=== PATIENT | male | born 1965 | race Hispanic/Latino ===

== ENCOUNTER 2019-02-23 15:43 | Observation (INO) | payer OTHER ==
[~2019-02-23] VITALS: Ht 175.3 cm; Wt 117.9 kg
[2019-02-23] MEDS ORDERED: SODIUM CHLORIDE 0.9% 1000ML 1,000 ML IV ONE (16:02)
[2019-02-23 16:13] LABS: BASOPHILS % (AUTO) 0.3 % (0.0-5.0); EOSINOPHILS % (AUTO) 1.7 % (0.0-8.0); HEMATOCRIT 43.7 % (36-48); LYMPHOCYTES % (AUTO) 15.7 % (21.0-51.0); MEAN CORPUSCULAR HEMOGLOBIN 30.8 pg (27.0-33.0); MEAN CORPUSCULAR HGB CONC 33.5 g/dL (32.0-36.0); MONOCYTES % (AUTO) 4.8 % (3.0-13.0); NEUTROPHILS % (AUTO) 77.5 % (40.0-77.0); PLATELET COUNT (AUTO) 169 K/uL (130-400); RED BLOOD CELL COUNT(AUTO) 4.75 MIL/uL (4.00-5.50); RED CELL DISTRIBUTION WIDTH 14.6 % (11.0-15.5); WHITE BLOOD COUNT (AUTO) 11.9 K/uL (4.8-10.8)
[2019-02-23 16:23] LABS: CREATININE 1.9 mg/dL (0.5-1.5); POTASSIUM 4.2 mmol/L (3.5-5.1)
[2019-02-23 16:27] LABS: ALBUMIN 3.8 g/dL (3.5-5.0); BILIRUBIN,DIRECT 0.1 mg/dL (0.0-0.3); BILIRUBIN,TOTAL 0.5 mg/dL (0.2-1.0); TOTAL PROTEIN, SERUM 7.8 g/dL (6.0-8.3)
[2019-02-23] MEDS ORDERED: SODIUM BICARB 50MEQ 50ML VIAL ONE (16:54)
[2019-02-23 16:59] LABS: B-TYPE NATRIURETIC PEPTIDE 15 pg/mL (0-100)
[2019-02-23 17:16] LABS: ACETAMINOPHEN < 1 mcg/mL (10-30); SALICYLATE < 2.8 mg/dL (2.8-20.0)
[2019-02-23] MEDS ORDERED: METHYLPREDNISOLONE SOD SUCC 40MG/ML 1ML ONE (18:59)
[2019-02-23] MEDS ORDERED: DIPHENHYDRAMINE HCL 25 MG CAPSULE PO PRN (19:00)
[2019-02-23] MEDS: SODIUM CHLORIDE 0.9% 1000ML 1,000 ML IV SCH (19:00)
[2019-02-23] MEDS: METHYLPREDNISOLONE SOD SUCC 40MG/ML 1ML IVP SCH (20:00)
[2019-02-23 22:10] VITALS: BP 141/83
[2019-02-23] MEDS ORDERED: ATOR10TA69 PO (22:25)
[2019-02-23] MEDS ORDERED: FOLI1TAB85 PO (22:25)
[2019-02-23] MEDS ORDERED: AMIT25TA9 PO (22:25)
[2019-02-23] MEDS ORDERED: GLIP5TAB11 PO (22:25)
[2019-02-23] MEDS ORDERED: ERGO500014 PO (22:25)
--- NOTE | 2019-02-23 22:25 | NUR ---
admit note admit to room 401 via stretcher from er. patient awake, alert, ox3, no sob, no c/o pain , no respiratory distress noted, right hand 18 gauge with ivf of ns at 100 cc/hr started, patients at bedside, teach patient and family plan of care and expected outcome
[2019-02-24 00:32] LABS: APPEARANCE,URINE Cloudy (CLEAR); BILIRUBIN,URINE Negative (NEGATIVE); COLOR,URINE Yellow (YELLOW); GLUCOSE, URINE (UA) 500 mg/dL (NEGATIVE); KETONES,URINE Trace mg/dL (NEGATIVE); LEUKOCYTE ESTERASE ,URINE Negative (NEGATIVE); NITRATE,URINE Negative (NEGATIVE); OCCULT BLOOD,URINE Moderate (NEGATIVE); PROTEIN,URINE POS 1+ mg/dL (NEGATIVE)
[2019-02-24 00:48] LABS: AMPHET/METH SCREEN,URINE NEGATIVE (NEGATIVE); BARBITURATE SCREEN, URINE NEGATIVE (NEGATIVE); BENZODIAZEPINES SCREEN,URINE NEGATIVE (NEGATIVE); CANNABINOID SCREEN,URINE NEGATIVE (NEGATIVE); COCAINE SCREEN,URINE NEGATIVE (NEGATIVE); OPIATE SCREEN,URINE NEGATIVE (NEGATIVE); PHENCYCLIDINE SCREEN,URINE NEGATIVE (NEGATIVE)
[2019-02-24 00:56] LABS: BACTERIA,URINE Few /HPF (None Seen); WBC,URINE 0-1 /HPF (0-1)
[2019-02-24 04:00] VITALS: BP 140/77
[2019-02-24] MEDS: SODIUM CHLORIDE 0.9% 1000ML 1,000 ML IV SCH ×3 (04:23→20:57)
[2019-02-24] MEDS: METHYLPREDNISOLONE SOD SUCC 40MG/ML 1ML IVP SCH ×2 (04:23→11:55)
[2019-02-24 04:29] LABS: BASOPHILS % (AUTO) 0.1 % (0.0-5.0); HEMATOCRIT 40.6 % (42-54); MEAN CORPUSCULAR HGB CONC 33.3 g/dL (32.0-36.0); MEAN CORPUSCULAR VOLUME 93.1 fL (79-99); MONOCYTES % (AUTO) 1.7 % (3.0-13.0); NEUTROPHILS % (AUTO) 85.2 % (40.0-77.0); PLATELET COUNT (AUTO) 137 K/uL (130-400); RED BLOOD CELL COUNT(AUTO) 4.35 MIL/uL (4.50-6.20); RED CELL DISTRIBUTION WIDTH 14.5 % (11.0-15.5); WHITE BLOOD COUNT (AUTO) 9.3 K/uL (4.8-10.8)
[2019-02-24 04:44] LABS: CREATININE 1.7 mg/dL (0.5-1.5); POTASSIUM 4.7 mmol/L (3.5-5.1)
[2019-02-24] MEDS: INSULIN HUMULIN R 100 UNIT/ML 3ML SQ SCH ×4 (05:59→21:13)
[2019-02-24 07:43] VITALS: BP 132/76
[2019-02-24 10:57] VITALS: BP 120/72
[2019-02-24 16:02] VITALS: BP 121/65
[2019-02-24] MEDS: DIPHENHYDRAMINE HCL 25 MG CAPSULE PO SCH (16:42)
[2019-02-24] MEDS: PREDNISONE 10 MG TABLET PO SCH (16:43)
--- NOTE | 2019-02-24 17:30 | NUR ---
cm note met with patient and states resides at home with spouse he is independent with adls and self care. uses a cane for ambulation. no other dme. dc plan is back to same home setting at [place]. Addendum: 02/24/19 at 1731 by MARGARET GALVAN CM Amended: Links added.
--- NOTE | 2019-02-24 19:00 | NUR ---
PATIENT AWAKE AND ALERT SITTING UP IN BED. VOICES ALL NEEDS. NO COMPLAINTS OF PAIN VOICED AT THIS TIME. VITALS STABLE. AFEBRILE. RESP EVEN AND UNLABORED. NO SOB NOTED. O2 ON AT 2LPM VIA NASAL CANNULA. UP AD BROOKE. TOLERATING IVF WELL. NS INFUSING AT 100ML/HR. NO SIGNS OF DISTRESS NOTED. FAMILY AT SIDE. CALL LIGHT WITHIN REACH. WILL CONTINUE TO BE OBSERVED. Addendum: 02/24/19 at 2342 by HARJIT GILL RN RN Amended: Links added.
[2019-02-24 19:28] VITALS: BP 154/88
[2019-02-24] MEDS: FAMOTIDINE 20MG TAB 20 MG TAB PO SCH (20:52)
[2019-02-24] MEDS ORDERED: ATORVASTATIN CALCIUM 10 MG TABLET PO SCH (21:00)
[2019-02-24 23:50] VITALS: BP 151/73
[2019-02-25] MEDS: DIPHENHYDRAMINE HCL 25 MG CAPSULE PO SCH ×2 (01:56→09:27)
[2019-02-25 04:00] VITALS: BP 139/79
[2019-02-25] MEDS: PREDNISONE 10 MG TABLET PO SCH (04:33)
[2019-02-25] MEDS: INSULIN HUMULIN R 100 UNIT/ML 3ML SQ SCH (06:31)
[2019-02-25 07:45] VITALS: BP 127/70
[2019-02-25] MEDS ORDERED: FOLIC ACID/VITAMIN B COMP W-C 1 MG CAP/TAB PO SCH (09:00)
[2019-02-25] MEDS ORDERED: GLIPIZIDE XL 5MG TAB PO SCH (09:00)
[2019-02-25] MEDS: FAMOTIDINE 20MG TAB 20 MG TAB PO SCH (09:27)
--- NOTE | 2019-02-25 11:15 | NUR ---
DISCHARGE DISCHARGE TEACHING DONE WITH PATIENT USING TEACHBACK METHOD, VERBALIZED UNDERSTANDING. NO NOTED SOB OR DISTRESS. PT AWARE OF NEED TO ATTEND PCP APPOINTMENT. NEW MEDICATION ADMINISTRATION TEACHING DONE WITH PATIENT USING TEACHBACK METHOD, VERBALIZED UNDERSTANDING. IV REMOVED, CATH TIP INTACT. TELEPACK REMOVED AND RETURNED. PENDING TO BE WHEELED DOWNSTAIRS AND TRANSFERRED OUT VIA PRIVATE VEHICLE.
[2019-03-03] MEDS ORDERED: ERGOCALCIFEROL (VITAMIN D2) 50,000 UNIT CAPSULE PO SCH (09:00)
== END 2019-02-25 12:24 | disposition home or self-care (01) ==
LOC: EDH 15:43 → EDHIP 18:30 → EDSEX 18:30 → 4AH 21:04
PROVIDERS: ADMIT Internal Medicine Critical Care Medicine; ATTEND Internal Medicine Critical Care Medicine
DX: T88.6XXA Anaphylactic reaction due to adverse effect of correct drug or medicament properly administered, initial encounter (principal); T43.015A Adverse effect of tricyclic antidepressants, initial encounter; T78.3XXA Angioneurotic edema, initial encounter; N28.9 Disorder of kidney and ureter, unspecified; I10 Essential (primary) hypertension; E78.5 Hyperlipidemia, unspecified; E66.01 Morbid (severe) obesity due to excess calories; E11.40 Type 2 diabetes mellitus with diabetic neuropathy, unspecified; E11.21 Type 2 diabetes mellitus with diabetic nephropathy; G47.33 Obstructive sleep apnea (adult) (pediatric); Z68.38 Body mass index [BMI] 38.0-38.9, adult; Z88.5 Allergy status to narcotic agent; Z88.8 Allergy status to other drugs, medicaments and biological substances; Y92.9 Unspecified place or not applicable
CPT/HCPCS: 36415 ×2; 80048 ×2; 80076; 80305; 81001; 82948 ×5; 83880; 84484 ×2; 85025 ×2; 93005 ×3; 96372 ×2; 96374; 96376; 99284; G0378 ×42; G0480; G0481; J1815 ×5; J2920 ×3; J3490; J7030 ×2; J7512 ×2; Q0163 ×4

== ENCOUNTER 2019-04-12 13:01 | Inpatient (IN) | payer OTHER | END 2019-04-20 18:50 | disposition home or self-care (01) | LOC: EDH 13:01 → 3AH 04-14 04:35 → EDHIP 13:02 → 3DH 17:21 | PROC: BT141ZZ Fluoroscopy of Kidneys, Ureters and Bladder using Low Osmolar Contrast (ICD-10-PCS; principal; 2019-04-13 09:50) | PROC: 0T788DZ Dilation of Bilateral Ureters with Intraluminal Device, Via Natural or Artificial Opening Endoscopic (ICD-10-PCS; 2019-04-13 09:50) | PROC: 0TC03ZZ Extirpation of Matter from Right Kidney, Percutaneous Approach (ICD-10-PCS; 2019-04-13 09:50) | DX: I82.C19 Acute embolism and thrombosis of unspecified internal jugular vein (principal); N13.2 Hydronephrosis with renal and ureteral calculous obstruction; C85.90 Non-Hodgkin lymphoma, unspecified, unspecified site; N18.4 Chronic kidney disease, stage 4 (severe); N17.9 Acute kidney failure, unspecified; N13.6 Pyonephrosis; N13.9 Obstructive and reflux uropathy, unspecified; E11.319 Type 2 diabetes mellitus with unspecified diabetic retinopathy without macular edema; E11.40 Type 2 diabetes mellitus with diabetic neuropathy, unspecified; E66.01 Morbid (severe) obesity due to excess calories; I12.9 Hypertensive chronic kidney disease with stage 1 through stage 4 chronic kidney disease, or unspecified chronic kidney disease ==

== ENCOUNTER 2019-05-16 09:25 | Day surgery (SDC) | payer MEDICARE, OTHER ==
[2019-05-13 12:30] VITALS: BP 116/70
[2019-05-13 12:53] LABS: BASOPHILS % (AUTO) 0.8 % (0.0-5.0); EOSINOPHILS % (AUTO) 6.3 % (0.0-8.0); HEMATOCRIT 32.2 % (42-54); LYMPHOCYTES % (AUTO) 17.6 % (21.0-51.0); MEAN CORPUSCULAR HEMOGLOBIN 32.1 pg (27.0-33.0); MEAN CORPUSCULAR VOLUME 94.5 fL (79-99); MONOCYTES % (AUTO) 6.8 % (3.0-13.0); NEUTROPHILS % (AUTO) 68.5 % (40.0-77.0); PLATELET COUNT (AUTO) 169 K/uL (130-400); RED BLOOD CELL COUNT(AUTO) 3.41 MIL/uL (4.50-6.20); RED CELL DISTRIBUTION WIDTH 16.4 % (11.0-15.5); WHITE BLOOD COUNT (AUTO) 7.2 K/uL (4.8-10.8)
[2019-05-13 13:10] LABS: CREATININE 1.7 mg/dL (0.5-1.5); POTASSIUM 3.8 mmol/L (3.5-5.1); URIC ACID 5.2 mg/dL (2.6-7.2)
[2019-05-13 13:19] LABS: APPEARANCE,URINE TURBID (CLEAR); BILIRUBIN,URINE SMALL (NEGATIVE); COLOR,URINE RED (YELLOW); GLUCOSE, URINE (UA) NEGATIVE (NEGATIVE); KETONES,URINE NEGATIVE (NEGATIVE); LEUKOCYTE ESTERASE ,URINE MODERATE (NEGATIVE); NITRATE,URINE NEGATIVE (NEGATIVE); OCCULT BLOOD,URINE LARGE (NEGATIVE); PROTEIN,URINE >=300 mg/dL (NEGATIVE); UROBILINOGEN,URINE 0.2 mg/dL (0.2-1.0)
[2019-05-13 13:37] LABS: BACTERIA,URINE Rare /HPF (None Seen); RBC,URINE TNTC /HPF (0-1); SQUAMOUS EPITHELIAL CELL,UR Rare /HPF (0-2)
--- NOTE | 2019-05-15 15:04 | NUR ---
labs labs faxed to Dr. Rios. office per there request. message left with Sary,
--- NOTE | 2019-05-15 15:58 | NUR ---
LABS RECEIVED CALL BACK FROM [facility] PER DR. MCCARTY NO FURTHER ORDERS GIVEN ON ABNORMAL LABS REPORTED AND FAXED. OK TO PROCEED WITH SX
[~2019-05-16] VITALS: Ht 175.3 cm; Wt 112.8 kg
[2019-05-16] VITALS (14 sets, daily range): BP systolic 137–190; BP diastolic 70–100
[~2019-05-16 09:25] MED LIST: AMOX-429 PO; APIX5TAB PO; ATOR10TA69 PO; CHOL200016 PO; ENOX120D5 SQ; ERGO500014 PO; FOLI1TAB85 PO; INSU200I SQ; INSU3INS3 SQ
[2019-05-16] MEDS ORDERED: IOHEXOL-350 50ML VIAL IV ONE (09:51)
[2019-05-16] MEDS ORDERED: CEFTRIAXONE SODIUM 1 GM ONE (10:47)
[2019-05-16] MEDS ORDERED: SODIUM CHLORIDE 0.9% 1000ML 1,000 ML IV ONE (10:47)
[2019-05-16] MEDS: CEFTRIAXONE SODIUM 1 GM IVP ONE ×2 (11:00→11:50)
[2019-05-16] MEDS: GENTAMICIN 80 MG/NS 100 ML PB 100 ML IV PRN ×2 (11:45→11:47)
[2019-05-16] MEDS ORDERED: LIDOCAINE PF 2% 5ML ABBOJECT ONE (11:47)
[2019-05-16] MEDS ORDERED: PROPOFOL 10 MG/ML 20ML VIAL IV ONE (11:47)
[2019-05-16] MEDS ORDERED: FENTANYL CITRATE PF 50 MCG/1 ML 2ML VIAL ONE (11:48)
--- NOTE | 2019-05-16 15:50 | NUR ---
PT. LEFT VIA WHEELCHAIR IN PVT CAR WITH D/C INSTRUCTION GIVEN TO AND F/U APPT SCHEDULED. NO COMPLAINTS UPON D.C.
== END 2019-05-16 15:50 ==
LOC: DAH 09:25
PROVIDERS: ATTEND Urology
DX: N20.2 Calculus of kidney with calculus of ureter (principal); E78.5 Hyperlipidemia, unspecified; I10 Essential (primary) hypertension; G47.30 Sleep apnea, unspecified
CPT/HCPCS: 36415 ×2; 52356; 74018; 77002; 80048; 81001; 82360 ×2; 82948 ×2; 84550; 85025; 87088; 96365; A4215 ×2; A4221; A4222; A4223 ×2; A4358; A4600; A4649; A4663; A4930; C1758; C1769; C2617; J0696; J1580; J2001; J2704; J3010; J7030 ×2; Q9967

== ENCOUNTER → 2019-06-04 | Outpatient (CLI) | payer OTHER | END | disposition home or self-care (01) | LOC: RAH 14:39 | PROVIDERS: ATTEND Internal Medicine | DX: I82.A11 Acute embolism and thrombosis of right axillary vein (principal) | CPT/HCPCS: 93970 ==

== ENCOUNTER → 2020-09-23 | Outpatient (CLI) | payer OTHER ==
[~2020-09-23] MED LIST changes: +GADODIAMIDE 10 MMOL/20 ML VIAL IV ONE
== END | disposition home or self-care (01) ==
LOC: RAH 12:56
PROVIDERS: ATTEND Internal Medicine
DX: M47.816 Spondylosis without myelopathy or radiculopathy, lumbar region (principal); M48.061 Spinal stenosis, lumbar region without neurogenic claudication; R20.0 Anesthesia of skin
CPT/HCPCS: 72158; A9579

== ENCOUNTER 2022-07-08 19:08 | Observation (INO) | payer OTHER ==
[~2022-07-08] VITALS: Ht 170.2 cm; Wt 111.1 kg
[~2022-07-08 19:08] MED LIST changes: -GADODIAMIDE 10 MMOL/20 ML VIAL IV ONE
[2022-07-08 21:03] LABS: BASOPHILS % (AUTO) 0.7 % (0.0-5.0); EOSINOPHILS % (AUTO) 4.8 % (0.0-8.0); HEMATOCRIT 37.8 % (42-54); LYMPHOCYTES % (AUTO) 20.4 % (21.0-51.0); MEAN CORPUSCULAR HEMOGLOBIN 30.6 pg (27.0-33.0); MEAN CORPUSCULAR HGB CONC 32.8 g/dL (32.0-36.0); MEAN CORPUSCULAR VOLUME 93.3 fL (79-99); NEUTROPHILS % (AUTO) 62.7 % (40.0-77.0); PLATELET COUNT (AUTO) 179 K/uL (130-400); RED BLOOD CELL COUNT(AUTO) 4.05 MIL/uL (4.50-6.20); RED CELL DISTRIBUTION WIDTH 13.4 % (11.0-15.5); WHITE BLOOD COUNT (AUTO) 7.3 K/uL (4.8-10.8)
[2022-07-08 21:13] LABS: CREATININE 2.2 mg/dL (0.5-1.5); POTASSIUM 4.4 mmol/L (3.5-5.1)
[2022-07-08 21:18] LABS: ALBUMIN 3.1 g/dL (3.5-5.0)
[2022-07-09] VITALS (27 sets, daily range): BP systolic 107–145; BP diastolic 52–80
[2022-07-09 01:44] LABS: APPEARANCE,URINE CLEAR (CLEAR); BILIRUBIN,URINE NEGATIVE (NEGATIVE); COLOR,URINE YELLOW (YELLOW); GLUCOSE, URINE (UA) 30 mg/dL (NEGATIVE); KETONES,URINE NEGATIVE (NEGATIVE); LEUKOCYTE ESTERASE ,URINE NEGATIVE Leu/uL (NEGATIVE); NITRATE,URINE NEGATIVE (NEGATIVE); OCCULT BLOOD,URINE NEGATIVE (NEGATIVE); PROTEIN,URINE 10 mg/dL (NEGATIVE); UROBILINOGEN,URINE 0.2 mg/dL (0.2-1.0)
[2022-07-09 01:49] LABS: BACTERIA,URINE RARE /HPF (None Seen); MUCUS,URINE RARE LPF (None Seen); SQUAMOUS EPITHELIAL CELL,UR RARE /HPF (0-2)
[2022-07-09] MEDS ORDERED: MORPHINE 4 MG SYG IVP ONE (02:00)
[2022-07-09] MEDS ORDERED: ONDANSETRON 4MG INJ IVP ONE (02:00)
[2022-07-09] MEDS ORDERED: LACTULOSE 20 GM/30 ML UDCUP PO PRN (04:30)
[2022-07-09] MEDS ORDERED: ACETAMINOPHEN 325 MG TAB PO PRN (04:30)
[2022-07-09] MEDS ORDERED: ACETAMINOPHEN 650 MG SUPPOSITORY RC PRN (04:30)
[2022-07-09] MEDS ORDERED: HYDRALAZINE 20MG/ML VIAL IV PRN (04:30)
[2022-07-09] MEDS ORDERED: CLONIDINE HCL 0.1 MG TABLET PO PRN (04:30)
[2022-07-09] MEDS ORDERED: ONDANSETRON 4MG INJ IVP PRN (04:30)
[2022-07-09] MEDS ORDERED: LACTATED RINGERS 1000ML 1,000 ML IV SCH (04:30)
[2022-07-09] MEDS ORDERED: DOCUSATE SODIUM 100 MG CAP PO PRN (04:30)
[2022-07-09] MEDS: 0.9%NACL 1000ML 1,000 ML IV SCH ×2 (04:47→10:44)
[2022-07-09] MEDS ORDERED: DEXTROSE 50%-WATER 50 ML DISP.SYRIN IV PRN (05:00)
[2022-07-09] MEDS ORDERED: GLUCAGON 1MG KIT 1 MG ML IM PRN (05:00)
[2022-07-09 05:56] LABS: CHLORIDE,URINE RANDOM 122 mmol/L (110-250); POTASSIUM,URINE RANDOM 48 mmol/L (25-125); SODIUM,URINE RANDOM 93 mmol/l (40-220)
[2022-07-09] MEDS ORDERED: HYDROMORPHONE 0.5 MG SYG (0.5MG/0.5ML) IVP PRN (07:30)
[2022-07-09] MEDS: INSULIN HUMULIN R 100 UNIT/ML 3ML SQ SCH ×4 (07:30→21:24)
[2022-07-09 07:31] LABS: INR 0.97 (0.85-1.15); PROTHROMBIN TIME 10.6 SEC (9.6-11.6)
[2022-07-09] MEDS ORDERED: INSU100V3 IJ (08:04)
[2022-07-09] MEDS ORDERED: DULO30CA52 PO (08:04)
[2022-07-09] MEDS ORDERED: POTA15TA11 PO (08:04)
[2022-07-09] MEDS: CEFTRIAXONE 1G VIAL IVP SCH (10:43)
[2022-07-09] MEDS: TAMSULOSIN HCL 0.4 MG CAP.ER.24H PO SCH (10:43)
[2022-07-09] MEDS ORDERED: IOHEXOL-350 50ML VIAL IV ONE (12:07)
[2022-07-09] MEDS ORDERED: LIDOCAINE HCL MPF 1% 5ML VIAL ONE (12:08)
[2022-07-09] MEDS ORDERED: SUCCINYLCHOLINE 200MG/10ML SYR ONE (12:08)
[2022-07-09] MEDS ORDERED: MIDAZOLAM HCL 1 MG/ML 2ML VIAL ONE (12:08)
[2022-07-09] MEDS ORDERED: PROPOFOL 10 MG/ML 20ML VIAL IV ONE (12:09)
[2022-07-09] MEDS ORDERED: FENTANYL CITRATE PF 50 MCG/1 ML 2ML VIAL ONE (12:09)
[2022-07-09] MEDS ORDERED: ONDANSETRON 4MG INJ ONE (12:09)
[2022-07-09] MEDS ORDERED: GLYCOPYRROLATE 1 MG/5 ML SYRINGE ONE (12:09)
[2022-07-09] MEDS ORDERED: ROCURONIUM 10MG/1ML SYR 10 MG/ML ML ONE (12:09)
[2022-07-09] MEDS ORDERED: NEOSTIGMINE 5MG/5ML SYR IV ONE (12:09)
[2022-07-09] MEDS ORDERED: EPHEDRINE SULFATE 50 MG/ML AMPULE ONE (12:46)
[2022-07-09] MEDS ORDERED: TRAMADOL HCL 50 MG TABLET PO PRN (14:30)
[2022-07-10] VITALS: BP 129/69
[2022-07-10] MEDS: 0.9%NACL 1000ML 1,000 ML IV SCH (03:53)
[2022-07-10 04:00] VITALS: BP 123/69
[2022-07-10 05:14] LABS: BASOPHILS % (AUTO) 0.7 % (0.0-5.0); EOSINOPHILS % (AUTO) 3.3 % (0.0-8.0); HEMATOCRIT 36.6 % (42-54); LYMPHOCYTES % (AUTO) 20.7 % (21.0-51.0); MEAN CORPUSCULAR HEMOGLOBIN 30.6 pg (27.0-33.0); MEAN CORPUSCULAR HGB CONC 32.2 g/dL (32.0-36.0); MEAN CORPUSCULAR VOLUME 94.8 fL (79-99); MONOCYTES % (AUTO) 7.3 % (3.0-13.0); NEUTROPHILS % (AUTO) 67.7 % (40.0-77.0); PLATELET COUNT (AUTO) 166 K/uL (130-400); RED BLOOD CELL COUNT(AUTO) 3.86 MIL/uL (4.50-6.20); RED CELL DISTRIBUTION WIDTH 13.6 % (11.0-15.5); WHITE BLOOD COUNT (AUTO) 7.6 K/uL (4.8-10.8)
[2022-07-10 05:26] LABS: CREATININE 1.8 mg/dL (0.5-1.5); POTASSIUM 3.9 mmol/L (3.5-5.1); URIC ACID 5.7 mg/dL (2.6-7.2)
[2022-07-10 05:28] LABS: HEMOGLOBIN A1C 7.4 % (4.0-6.0)
[2022-07-10] MEDS: INSULIN HUMULIN R 100 UNIT/ML 3ML SQ SCH ×2 (06:30→11:39)
[2022-07-10 07:45] VITALS: BP 109/63
[2022-07-10] MEDS: TAMSULOSIN HCL 0.4 MG CAP.ER.24H PO SCH (08:03)
[2022-07-10] MEDS: CEFTRIAXONE 1G VIAL IVP SCH (08:19)
[2022-07-10] MEDS ORDERED: Vitamin B Complex/Vit C/Folic Acid PO SCH (09:00)
[2022-07-10 11:33] VITALS: BP 132/71
[2022-07-10] MEDS ORDERED: LEVO-70 PO (14:12)
== END 2022-07-10 16:00 | disposition home or self-care (01) ==
LOC: EDH 19:08 → EDHIP 07-09 04:25 → 4BH 07-09 09:35
PROVIDERS: ADMIT Internal Medicine Critical Care Medicine; ATTEND Internal Medicine Critical Care Medicine
DX: N13.2 Hydronephrosis with renal and ureteral calculous obstruction (principal); Z20.822 Contact with and (suspected) exposure to COVID-19; I12.9 Hypertensive chronic kidney disease with stage 1 through stage 4 chronic kidney disease, or unspecified chronic kidney disease; E11.22 Type 2 diabetes mellitus with diabetic chronic kidney disease; N18.30 Chronic kidney disease, stage 3 unspecified; N17.9 Acute kidney failure, unspecified; E11.319 Type 2 diabetes mellitus with unspecified diabetic retinopathy without macular edema; E11.40 Type 2 diabetes mellitus with diabetic neuropathy, unspecified; E11.65 Type 2 diabetes mellitus with hyperglycemia; E66.01 Morbid (severe) obesity due to excess calories; C85.90 Non-Hodgkin lymphoma, unspecified, unspecified site; I82.C19 Acute embolism and thrombosis of unspecified internal jugular vein; Z68.38 Body mass index [BMI] 38.0-38.9, adult; Z86.718 Personal history of other venous thrombosis and embolism; Z87.442 Personal history of urinary calculi; Z87.891 Personal history of nicotine dependence; Z92.21 Personal history of antineoplastic chemotherapy; Z79.899 Other long term (current) drug therapy
CPT/HCPCS: 80053; 85025 ×2; 52356; 96374; 96375; 99284; 80051; 85610; 86850; 86900; 86901; 82948 ×5; 82360; 81001; 36415 ×3; 87635; 74018; 74176; 76770; 94660; 96376; 83036; 84550; 80048; J1815; G0378 ×34; J7120; C1758; C2617; J3010; J0330; J3490 ×3; J2710; J0696 ×2; J2250; J2704; J2405 ×2; J2270; A4358; A4649; C1769; J7030; Q9967

== ENCOUNTER → 2022-10-28 | Outpatient (CLI) | payer OTHER ==
[~2022-10-28] MED LIST changes: -AMOX-429 PO; +DULO30CA52 PO; -ENOX120D5 SQ; +INSU100V3 IJ; +LEVO-70 PO; +POTA15TA11 PO
== END | disposition home or self-care (01) ==
LOC: SHCH 13:25
PROVIDERS: ATTEND Student in an Organized Health Care Education/Training Program
DX: R94.31 Abnormal electrocardiogram [ECG] [EKG] (principal); I10 Essential (primary) hypertension; E78.5 Hyperlipidemia, unspecified
CPT/HCPCS: 93306

== ENCOUNTER → 2023-03-30 | Outpatient (CLI) | payer OTHER | END | disposition home or self-care (01) | LOC: RAH 14:44 | PROVIDERS: ATTEND Physical Medicine & Rehabilitation | DX: M48.07 Spinal stenosis, lumbosacral region (principal) | CPT/HCPCS: 72114 ==

== ENCOUNTER → 2023-04-04 | Outpatient (CLI) | payer OTHER | END | disposition home or self-care (01) | LOC: RAH 13:02 | PROVIDERS: ATTEND Physical Medicine & Rehabilitation | DX: S32.009A Unspecified fracture of unspecified lumbar vertebra, initial encounter for closed fracture (principal); M47.816 Spondylosis without myelopathy or radiculopathy, lumbar region; M48.061 Spinal stenosis, lumbar region without neurogenic claudication; X58.XXXA Exposure to other specified factors, initial encounter; Y93.89 Activity, other specified; Y92.89 Other specified places as the place of occurrence of the external cause; Y99.8 Other external cause status | CPT/HCPCS: 72131 ==

== ENCOUNTER → 2025-04-16 | Outpatient (CLI) | payer OTHER ==
--- NOTE | 2025-04-16 19:23 | HMCIMG ---
EXAM: CT Abdomen and Pelvis Without Intravenous Contrast CLINICAL HISTORY: 59 year old male with renal calculus. TECHNIQUE: Axial computed tomography images of the abdomen and pelvis without intravenous contrast. Dose reduction technique was used including one or more of the following: automated exposure control, adjustment of mA and kV according to patient size, and/or iterative reconstruction. CONTRAST: NONE COMPARISON: CT Abdomen and Pelvis dated 07/09/2022. FINDINGS: LUNG BASES: Atelectasis with soft tissue opacity. LIVER: Unremarkable. GALLBLADDER AND BILE DUCTS: Unremarkable. No calcified stone. No ductal dilation. PANCREAS: Unremarkable. SPLEEN: Unremarkable. ADRENAL GLANDS: Unremarkable. KIDNEYS, URETERS, AND BLADDER: Nonspecific bilateral Perinephric fat stranding is seen. Mild left-sided hydronephrosis and hydroureter are present, but there is no evidence of an obstructing ureteral stone; a recently passed stone is possible. A moderate-sized right renal pelvis stone is seen. Previously visualized right mid-ureteral stone is not seen on the current exam. STOMACH AND BOWEL: No obstruction. No wall thickening. No CT evidence of colitis or acute diverticulitis. APPENDIX: No CT evidence for appendicitis. PERITONEUM: No free fluid. No free air. LYMPH NODES: No lymphadenopathy. REPRODUCTIVE: Unremarkable as visualized. VASCULATURE: Venous varicosities of the anterior abdominal wall are seen. ABDOMINAL WALL AND SOFT TISSUES: Venous varicosities of the anterior abdominal wall are seen. BONES: No fracture or suspicious osseous abnormality. IMPRESSION: 1. Moderate-sized right renal pelvis stone. 2. Mild left-sided hydronephrosis and hydroureter without evidence of an obstructing ureteral stone; a recently passed stone is possible. 3. Nonspecific bilateral perinephric fat stranding. /[place]
== END | disposition home or self-care (01) ==
LOC: RAH 13:11
PROVIDERS: ATTEND Internal Medicine
DX: N20.0 Calculus of kidney (principal); J98.11 Atelectasis
CPT/HCPCS: 74176